=== PATIENT | female | born 1990 ===

== ENCOUNTER 2017-08-18 10:18 | Emergency (ER) | payer OTHER ==
[~2017-08-18] VITALS: Ht 160 cm; Wt 56.2 kg
== END 2017-08-18 13:10 | disposition home or self-care (01) ==
LOC: ER 10:18
DX: S60.221A Contusion of right hand, initial encounter (principal); W18.2XXA Fall in (into) shower or empty bathtub, initial encounter; Y93.E1 Activity, personal bathing and showering; Y92.091 Bathroom in other non-institutional residence as the place of occurrence of the external cause; Y99.8 Other external cause status